=== PATIENT | male | born 1995 | race Caucasian/White ===

== ENCOUNTER → 2024-02-23 15:44 | Outpatient (CLI) | payer OTHER, SELFPAY ==
--- NOTE | 2024-02-23 15:46 | DI.MRI.S_ITS ---
PROCEDURE: MR LUMBAR SPINE WO CON INDICATIONS: LOW BACK PAIN TECHNIQUE: Noncontrast sagittal T1 spin echo and T2 fast echo, sagittal STIR, and T2 fast spin echo through the lumbar spine. In cases with scoliosis, additional coronal T2 fast spin echo may be performed. COMPARISON: None. FINDINGS: Image quality: Excellent. Alignment and Curvature: There is normal bony alignment. Bone Marrow: Marrow is of normal overall signal. No acute vertebral body compression fractures. Spinal Cord: Conus medullaris terminates at the L1 level. Visualized cord demonstrates normal signal and size. Paraspinous Soft Tissues: No paravertebral masses. T12-L1: Normal appearance. L1-L2: Normal appearance. L2-L3: Normal appearance. L3-L4: Bilateral facet arthrosis is seen. Mild broad-based disc bulge without significant central canal stenosis. Mild left-sided neural foraminal narrowing is seen. L4-L5: Disc desiccation. Broad-based disc bulge and bilateral facet arthrosis with hypertrophy of ligamentum flavum causing mild central canal stenosis, moderate to severe left-sided neural foraminal narrowing and moderate right-sided neural foraminal narrowing. Bulging disc is likely contacting bilateral L4 nerve roots. L5-S1: Disc desiccation. Broad-based, more right-sided disc bulge with bilateral facet arthrosis causing moderate to severe right-sided neural foraminal narrowing and mild left-sided neural foraminal narrowing. No significant central canal stenosis. Bulging disc is seen contacting right L5 nerve root. IMPRESSION: 1. Broad-based disc bulge and bilateral facet arthrosis with hypertrophy of ligamentum flavum at L4-5 and L5-S1 levels causing various degrees of central canal stenosis and bilateral neural foraminal narrowing as described above. 2. Mild broad-based disc bulge also seen at L3-4 level with mild left-sided neural foraminal narrowing. 3. No marrow edema. No compression fracture or spondylolisthesis. No gross paraspinous soft tissue abnormalities. Dictated by: Kristian Bloom M.D. on 02/23/2024 at 20:55 Approved by: Kristian Bloom M.D. on 02/23/2024 at 20:58
== END ==
LOC: MRI 15:45
PROVIDERS: Referring Provider Student in an Organized Health Care Education/Training Program; Visit Provider Student in an Organized Health Care Education/Training Program
DX: M47.816 Spondylosis without myelopathy or radiculopathy, lumbar region (principal); M47.817 Spondylosis without myelopathy or radiculopathy, lumbosacral region; M51.36 Other intervertebral disc degeneration, lumbar region; M51.37 Other intervertebral disc degeneration, lumbosacral region; M48.061 Spinal stenosis, lumbar region without neurogenic claudication; M48.07 Spinal stenosis, lumbosacral region; M54.50 Low back pain, unspecified
CPT/HCPCS: 72148